=== PATIENT | female | born 1990 | race Two or more races ===

== ENCOUNTER 2024-09-03 15:53 | Emergency (ER) | payer SELFPAY ==
[~2024-09-03] VITALS: Ht 172.7 cm; Wt 84.0 kg
[2024-09-03 16:23] VITALS: BP 113/79; PULSE 103; RESP 18; TEMP 37.1; O2SAT 99
[2024-09-03] MEDS ORDERED: DEXAMETHASONE 0.5MG/5ML ORAL SYR PO ONE (16:45)
[2024-09-03] MEDS: DIPHENHYDRAMINE 50MG CAPSULE PO ONE (17:00)
[2024-09-03] MEDS: DEXAMETHASONE 4MG TABLET PO NR (17:00)
[2024-09-03] MEDS: FAMOTIDINE 20MG TABLET PO ONE (17:00)
== END 2024-09-04 05:20 | disposition home or self-care (01) ==
LOC: ER 17:51
DX: T78.40XA Allergy, unspecified, initial encounter (principal); X58.XXXA Exposure to other specified factors, initial encounter
CPT/HCPCS: 99281; J8540; Q0163